=== PATIENT | female | born 1970 | race Caucasian/White ===

== ENCOUNTER → 2023-05-29 | Outpatient (RCR) | payer OTHER | END | disposition home or self-care (01) | LOC: WSOH | DX: S51.811D Laceration without foreign body of right forearm, subsequent encounter (principal); Y99.0 Civilian activity done for income or pay; F90.9 Attention-deficit hyperactivity disorder, unspecified type ==

== ENCOUNTER 2023-06-24 14:49 | Outpatient (RCR) | payer OTHER | END 2023-06-29 | LOC: WSOH | DX: S51.811D Laceration without foreign body of right forearm, subsequent encounter (principal); L08.9 Local infection of the skin and subcutaneous tissue, unspecified; F90.9 Attention-deficit hyperactivity disorder, unspecified type; Y99.0 Civilian activity done for income or pay ==